=== PATIENT | female | born 1960 | race Caucasian/White ===

== ENCOUNTER 2017-01-24 09:45 | Emergency (ER) | payer SELFPAY ==
[~2017-01-24] VITALS: Ht 162.6 cm; Wt 57.0 kg
[2017-01-24 10:42] LABS: HEMATOCRIT 44.3 % (34.6-47.8); HEMOGLOBIN 15.1 g/dL (11.7-16.4); WHITE BLOOD COUNT 4.1 x10^3/uL (3.4-10)
[2017-01-24 10:51] LABS: BLOOD UREA NITROGEN 6 mg/dL (7-18)
[2017-01-24 11:33] VITALS: BP 166/85
== END 2017-01-24 11:36 | disposition home or self-care (01) ==
LOC: ED 10:29
DX: R56.9 Unspecified convulsions (principal); F10.10 Alcohol abuse, uncomplicated
CPT/HCPCS: 36415; 80048; 80307; 82040; 83735; 85025; 99284; G0479